=== PATIENT | male | born 1990 | race African-American/Black ===

== ENCOUNTER 2019-12-27 09:54 | Emergency (ER) | payer MEDICAID ==
[~2019-12-27] VITALS: Ht 175.3 cm; Wt 81.6 kg
[2019-12-27 09:57] VITALS: BP 138/85
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
[2019-12-27] MEDS ORDERED: ACETAMINOPHEN 325 MG TAB PO ONE (10:50)
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
[2019-12-27 13:11] VITALS: BP 133/81
--- NOTE | 2019-12-27 13:12 | NUR ---
Patient discharged with v/s stable. Written and verbal after care instructions given and explained. Patient alert, oriented and verbalized understanding of instructions. Ambulatory with steady gait. All questions addressed prior to discharge. ID band removed. Patient advised to follow up with PMD. Rx of Augmentin 875mg and Capitan 5mg-325mg given. Patient educated on indication of medication including possible reaction and side effects. Opportunity to ask questions provided and answered.
== END 2019-12-27 13:12 | disposition home or self-care (01) ==
LOC: MED 09:54
DX: S02.609B Fracture of mandible, unspecified, initial encounter for open fracture (principal); S43.402A Unspecified sprain of left shoulder joint, initial encounter; R51 Headache; V89.2XXA Person injured in unspecified motor-vehicle accident, traffic, initial encounter; Y93.89 Activity, other specified; Y92.89 Other specified places as the place of occurrence of the external cause; Y99.8 Other external cause status
CPT/HCPCS: 70450; 70486; 73030; 99285; Q0092

== ENCOUNTER 2021-08-11 18:19 | Emergency (ER) | payer SELFPAY ==
[~2021-08-11] VITALS: Ht 175.3 cm; Wt 81.6 kg
[2021-08-11 18:46] VITALS: BP 142/95
--- NOTE | 2021-08-11 19:02 | NUR ---
SUSU FU AT BEDSIDE
[2021-08-11] MEDS ORDERED: LIDOCAINE MPF 1% 10 MG/ML VIAL INJ ONE (19:05)
[2021-08-11] MEDS ORDERED: ACETAMINOPHEN 325 MG TAB PO ONE (19:05)
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
--- NOTE | 2021-08-11 19:34 | NUR ---
SUSU FU AT BEDSIDE FOR PROCEDURE
--- NOTE | 2021-08-11 19:40 | NUR ---
PT TAKEN TO XRAY VIA WC
--- NOTE | 2021-08-11 19:40 | NUR ---
Pt report given to MAY RN. Transfer of care at this time.
--- NOTE | 2021-08-11 19:59 | NUR ---
PT RETURN FROM RADIOLOGY
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
[2021-08-11 21:17] VITALS: BP 142/95
--- NOTE | 2021-08-11 21:17 | NUR ---
Patient discharged with v/s stable. Written and verbal after care instructions given and explained. Patient verbalized understanding. Ambulatory with steady gait. All questions addressed prior to discharge. Advised to follow up with PMD.
== END 2021-08-11 21:17 | disposition home or self-care (01) ==
LOC: MED 18:19
DX: S01.112A Laceration without foreign body of left eyelid and periocular area, initial encounter (principal); Y04.0XXA Assault by unarmed brawl or fight, initial encounter; Y93.89 Activity, other specified; Y92.89 Other specified places as the place of occurrence of the external cause; Y99.8 Other external cause status
CPT/HCPCS: 12011; 70110; 70150; 99283; J2001